=== PATIENT | female | born 1950 | race Asian ===

== ENCOUNTER 2019-07-16 13:29 | Emergency (ER) | payer OTHER ==
[~2019-07-16] VITALS: Ht 160 cm; Wt 71.7 kg
[2019-07-16 13:36] VITALS: BP_SYST 129
[2019-07-16 15:30] VITALS: BP_SYST 124
== END 2019-07-16 15:30 | disposition home or self-care (01) ==
LOC: SED 13:29
DX: S52.532A Colles' fracture of left radius, initial encounter for closed fracture (principal); I10 Essential (primary) hypertension; W18.39XA Other fall on same level, initial encounter; Y93.89 Activity, other specified; Y92.89 Other specified places as the place of occurrence of the external cause; Y99.8 Other external cause status
CPT/HCPCS: 99283